=== PATIENT | female | born 1990 | race Two or more races ===

== ENCOUNTER → 2021-01-23 11:49 | Outpatient (CLI) | payer OTHER, SELFPAY | PROVIDERS: Visit Provider Obstetrics & Gynecology | DX: Z32.01 Encounter for pregnancy test, result positive (principal) | CPT/HCPCS: 36415; 84702 ==

== ENCOUNTER → 2021-01-25 11:33 | Outpatient (CLI) | payer OTHER, SELFPAY | PROVIDERS: Visit Provider Obstetrics & Gynecology | DX: Z34.90 Encounter for supervision of normal pregnancy, unspecified, unspecified trimester (principal) | CPT/HCPCS: 36415; 84702 ==

== ENCOUNTER → 2021-01-30 13:27 | Outpatient (CLI) | payer OTHER, SELFPAY ==
--- NOTE | 2021-01-30 13:27 | US_ITS ---
PROCEDURE: US OB <= 14 WEEKS FETUS CLINICAL INDICATION: Dates COMPARISON: No exams were available for comparison FINDINGS: An intrauterine gestational sac is present with a pole with a crown-rump length of 2.16cm correlating to gestational age of 8weeks 6days. heart tones are present with an FHR of 167bpm. Yolk sac is noted. There are least 2 nabothian cyst measuring 1 point and 1 cm each. Unremarkable adnexa. IMPRESSION: Live IUP at 8 weeks 6 days. Estimated due date by Ultrasound is 09/05/2021 Dictated by: Nuno Kowalski MD 01/30/2021 17:18 Nuno Kowalski MD in OV 01/30/2021 17:18
== END ==
PROVIDERS: PCP Obstetrics & Gynecology; Visit Provider Obstetrics & Gynecology
DX: Z34.90 Encounter for supervision of normal pregnancy, unspecified, unspecified trimester (principal)
CPT/HCPCS: 76801

== ENCOUNTER → 2021-04-22 14:45 | Outpatient (CLI) | payer OTHER, SELFPAY ==
[2021-04-22 16:05] LABS: Basophils # 0.1 K/mm3 (0-0.2); Basophils % 0.6 % (0.1-2.0); Eosinophils # 0.1 K/mm3 (0.0-0.4); Eosinophils % 0.5 % (0.1-12.0); Hematocrit 33.9 % (37.0-47.0); Hemoglobin 11.4 g/dL (12.2-16.2); Lymphocytes # 2.4 K/mm3 (0.7-4.5); Lymphocytes % 24.6 % (10-50); Mean Corpuscular HGB Conc 33.5 g/dL (31.8-35.4); Mean Corpuscular Hemoglobin 30.4 pg (27.0-31.2); Mean Corpuscular Volume 90.5 fl (81-99); Mean Platelet Volume 11.5 fl (7.4-10.4); Monocytes # 0.4 K/mm3 (0.1-1.0); Monocytes % 3.9 % (1.7-9.3); Neutrophils % 70.5 % (37.0-80.0); Platelet Count 140 K/mm3 (142-424); Red Blood Count 3.74 M/mm3 (4.20-5.40); White Blood Count 9.9 K/mm3 (4.8-10.8)
[2021-04-24 09:13] LABS: HIV Screen 4th Generation wRfx Non Reactive (Non Reactive)
[2021-04-24 10:14] LABS: Rapid Plasma Reagin Ab Titer Non Reactive (NonRea<1:1)
[2021-04-24 12:12] LABS: Hepatitis B Surface Antigen Negative (Negative); Hepatitis C Antibody <0.1 s/co ratio (0.0-0.9)
== END ==
PROVIDERS: Visit Provider Obstetrics & Gynecology
DX: Z34.90 Encounter for supervision of normal pregnancy, unspecified, unspecified trimester (principal)
CPT/HCPCS: 85025; 86592; 86703; 86762; 86850; 87340; 87380; G0432

== ENCOUNTER → 2021-04-25 13:57 | Outpatient (CLI) | payer OTHER, SELFPAY ==
--- NOTE | 2021-04-25 13:58 | US_ITS ---
FINAL REPORT CLINICAL HISTORY: OB Complete, Anatomy FINDINGS: There is a single live intrauterine gestation. Presentation is breech. The cervix is closed and measures 3.9 cm. Placenta is anterior and grade 1. movement is noted. Cardiac activity is confirmed at 150 beats per minute. Three-vessel cord with satisfactory umbilical cord insertion. Four-chamber heart is noted. brain and ventricles are unremarkable. Chest and diaphragm are unremarkable. ABDOMEN: Both kidneys are unremarkable. Stomach is unremarkable. SPINE: No anomalies identified. Both arms and legs noted. AMNIOTIC FLUID: Appropriate amount. MEASUREMENTS: ULTRASOUND AGE: 21 weeks 0 days. GESTATION AGE: 21 weeks 0 days. ESTIMATED WEIGHT: 386 g GROWTH PERCENTILE: 40 % BPD: 5 cm consistent with 21 weeks 2 days. OFD: 6.1 cm consistent with 20 weeks 5 days. HC: 17.6 cm consistent with 20 weeks 1 days. AC: 16 cm consistent with 21 weeks 1 days. FL: 3.5 cm consistent with 21 weeks 0 days. CEREBELLUM: 2.0 cm consistent with 20 weeks 1 days. HUMERUS: 3.5 cm consistent with 21 weeks 6 days. HC/AC: 1.10 CI: 82% FL/BPD: 69% FL/AC: 22% IMPRESSION: Single living IUP with an ultrasound age of 21 weeks 0 day. Reviewed, Interpreted and Dictated by Florencio Bourne III, MD Transcribed by Norberto Bhakta Authenticated by Florencio Bourne III, MD on 04/25/2021 04:18:[address] [facility]
== END ==
PROVIDERS: PCP Obstetrics & Gynecology; Visit Provider Obstetrics & Gynecology
DX: Z34.90 Encounter for supervision of normal pregnancy, unspecified, unspecified trimester (principal)
CPT/HCPCS: 76805

== ENCOUNTER 2021-05-14 10:13 | Outpatient (CLI) | payer OTHER, SELFPAY ==
[2021-05-14 10:27] VITALS: BMI 48.4
[2021-05-14 10:35] VITALS: BP 130/69; PULSE 64; RESP 17; TEMP 36.7; O2SAT 99; BMI 46.3
[2021-05-14 10:37] LABS: Microscopic, Urine URINE MICROSCOPIC (MICROSCOPIC)
[2021-05-14 10:46] LABS: Appearance,Urine CLEAR (Clear); Bilirubin,Urine Negative (Negative); Blood, Urine Negative (Negative); Color,Urine YELLOW (Yellow); Glucose,Urine (UA) Negative (Negative); Ketones,Urine Negative (Negative); Leukocyte Esterase,Urine TRACE (Negative); Nitrate,Urine Negative (Negative); Protein,Urine Negative (Negative); Specific Gravity, Urine 1.015 (1.005-1.030); Urobilinogen,Urine 0.2 EU/dl (0.2)
[2021-05-14 10:57] LABS: Barbiturates Screen,Urine Negative ng/ml (<200); WBC,Urine Occasional #/hpf (0-3)
[2021-05-14 10:58] LABS: Amphetamine/Metha Screen,Urine Negative ng/ml (<1000); Benzodiazepines Screen,Urine Negative ng/ml (<200); RBC,Urine Occasional #/hpf (0-3)
[2021-05-14 11:00] LABS: Cannabinoid Screen,Urine Positive ng/ml (<50); Methadone Screen,Urine Negative ng/ml (<300)
[2021-05-14 11:01] LABS: Cocaine Screen,Urine Negative ng/ml (<300)
[2021-05-14 11:02] LABS: Opiate Screen,Urine Negative ng/ml (<300); Phencyclidine Screen,Urine Negative ng/ml (<25)
--- NOTE | 2021-05-14 11:06 | US_ITS ---
FINAL REPORT CLINICAL HISTORY: HX OF GALLSTONES-- 25 wks preg-- vomiting FINDINGS: RIGHT UPPER QUADRANT ULTRASOUND: Ultrasound images of right upper quadrant were obtained. Limited images of the pancreas are obscured by bowel gas. The liver parenchyma is normal echogenicity. There are multiple gallstones in a distended gallbladder. The gallbladder wall is not significantly thickened. The common duct is normal. Limited images of right kidney measures 12 cm. IMPRESSION: Cholelithiasis. Reviewed, Interpreted and Dictated by Mike Madrigal MD Transcribed by Kim Miller Authenticated by Mike Madrigal MD on 05/14/2021 01:53:24 PM [facility]
[2021-05-14 12:06] LABS: Chloride 106 mmol/L (98-107); Potassium 4.5 mmoL/L (3.5-5.1); Sodium 133 mmol/L (136-145)
[2021-05-14 12:07] LABS: Basophils # 0.1 K/mm3 (0-0.2); Basophils % 0.6 % (0.1-2.0); Eosinophils # 0.2 K/mm3 (0.0-0.4); Eosinophils % 1.1 % (0.1-12.0); Hematocrit 35.1 % (37.0-47.0); Hemoglobin 11.6 g/dL (12.2-16.2); Lymphocytes # 2.2 K/mm3 (0.7-4.5); Mean Corpuscular HGB Conc 32.9 g/dL (31.8-35.4); Mean Corpuscular Hemoglobin 30.4 pg (27.0-31.2); Mean Corpuscular Volume 92.4 fl (81-99); Monocytes # 0.4 K/mm3 (0.1-1.0); Monocytes % 3.1 % (1.7-9.3); Neutrophils # 10.9 K/mm3 (1.8-7.8); Neutrophils % 79.1 % (37.0-80.0); Platelet Count 271 K/mm3 (142-424); Red Cell Distribution Width 13.8 % (11.5-17.5); White Blood Count 13.7 K/mm3 (4.8-10.8)
[2021-05-14 12:09] LABS: Alanine Aminotransferase 23 U/L (12-78); Albumin Level 3.7 g/dl (3.5-5.0); Albumin/Globulin Ratio 1.2 (1.1-1.8); Alkaline Phosphatase 116 U/L (38-126); Anion Gap 12.5 mEq/L (5-15); Aspartate Amino Transferase 24 U/L (14-36); Bilirubin,Total 0.5 mg/dl (0.2-1.3); Blood Urea Nitrogen 6 mg/dl (7-17); Carbon Dioxide 19 mmol/L (22.0-30.0); Creatinine Clearance Estimated 161 mL/min (50-200); Estimated Glomerular Filt Rate 186 ml/min (>60); GFR (African American) 225 ML/MIN (>60); Globulin 3.1 g/dL (1.3-3.2); Total Protein,Serum 6.8 g/dl (6.3-8.2)
[2021-05-14 12:10] LABS: Calcium 8.6 mg/dl (8.4-10.2); Glucose 106 mg/dl (74-100)
== END 2021-05-14 12:50 | disposition home or self-care (01) ==
LOC: OBOUT 10:14 → OB 10:16
PROVIDERS: Visit Provider Obstetrics & Gynecology
DX: O26.892 Other specified pregnancy related conditions, second trimester (principal); Z3A.24 24 weeks gestation of pregnancy; R10.9 Unspecified abdominal pain
CPT/HCPCS: 76705; 80053; 80305; 81001; 85025; 96365; G0463; J2405

== ENCOUNTER → 2021-07-18 10:22 | Outpatient (CLI) | payer OTHER, SELFPAY ==
[2021-07-18 10:52] LABS: Basophils # 0.2 K/mm3 (0-0.2); Basophils % 1.1 % (0.1-2.0); Eosinophils # 0.2 K/mm3 (0.0-0.4); Eosinophils % 1.2 % (0.1-12.0); Hematocrit 32.6 % (37.0-47.0); Hemoglobin 11.1 g/dL (12.2-16.2); Lymphocytes # 3.1 K/mm3 (0.7-4.5); Lymphocytes % 21.7 % (10-50); Mean Corpuscular Volume 91.3 fl (81-99); Mean Platelet Volume 11.1 fl (7.4-10.4); Monocytes # 0.7 K/mm3 (0.1-1.0); Monocytes % 4.7 % (1.7-9.3); Neutrophils # 10.3 K/mm3 (1.8-7.8); Neutrophils % 71.3 % (37.0-80.0); Platelet Count 263 K/mm3 (142-424); Red Blood Count 3.58 M/mm3 (4.20-5.40); Red Cell Distribution Width 13.6 % (11.5-17.5); White Blood Count 14.5 K/mm3 (4.8-10.8)
[2021-07-18 11:04] LABS: Glucose,Fasting 112 mg/dl (74-100)
[2021-07-18 12:43] LABS: Glucose 1 Hour 120 mg/dL (74-100)
== END ==
PROVIDERS: Visit Provider Obstetrics & Gynecology
DX: Z34.90 Encounter for supervision of normal pregnancy, unspecified, unspecified trimester (principal)
CPT/HCPCS: 36415; 82951; 85025

== ENCOUNTER → 2021-08-01 13:23 | Outpatient (CLI) | payer OTHER, SELFPAY ==
--- NOTE | 2021-08-01 13:24 | US_ITS ---
FINAL REPORT CLINICAL HISTORY: growth and CHRISTINA FINDINGS: There is a single live intrauterine gestation. Presentation is cephalic. Placenta is anterior. Cardiac activity is confirmed at 150 bpm. The fetus is active. Three-vessel cord with satisfactory umbilical cord insertion. Four-chamber heart is noted. AMNIOTIC FLUID: 15.35 cm MEASUREMENTS: ULTRASOUND AGE: 36 weeks 1 days. GESTATION AGE: 35 weeks 0 days. ESTIMATED WEIGHT: 2766 g GROWTH PERCENTILE: 70% BPD: 8.8 cm consistent with 35 weeks 4 days. OFD: 11.8 cm. HC: 32.6 cm consistent with 37 weeks 0 days. AC: 31.4 cm consistent with 35 weeks 3 days. FL: 7.1 cm consistent with 36 weeks 2 days. HC/AC: 1.04 CI: 75% FL/BPD: 80% FL/AC: 22% IMPRESSION: Single living IUP with an ultrasound age of 36 weeks 1 day. Reviewed, Interpreted and Dictated by Florencio Bourne III, MD Transcribed by Norberto Bhakta Authenticated and [facility]
== END ==
PROVIDERS: PCP Obstetrics & Gynecology; Visit Provider Obstetrics & Gynecology
DX: Z34.90 Encounter for supervision of normal pregnancy, unspecified, unspecified trimester (principal)
CPT/HCPCS: 76816

== ENCOUNTER → 2021-08-01 16:50 | Outpatient (CLI) | payer OTHER, SELFPAY | PROVIDERS: Visit Provider Obstetrics & Gynecology | DX: Z34.90 Encounter for supervision of normal pregnancy, unspecified, unspecified trimester (principal) | CPT/HCPCS: 86403 ==

== ENCOUNTER → 2021-08-27 15:16 | Outpatient (CLI) | payer OTHER, SELFPAY ==
[2021-08-27 16:28] LABS: Chloride 107 mmol/L (98-107); Sodium 131 mmol/L (136-145)
[2021-08-27 16:29] LABS: Potassium 4.2 mmoL/L (3.5-5.1)
[2021-08-27 16:31] LABS: Alanine Aminotransferase 15 U/L (12-78); Albumin Level 3.4 g/dl (3.5-5.0); Albumin/Globulin Ratio 1.2 (1.1-1.8); Alkaline Phosphatase 168 U/L (38-126); Aspartate Amino Transferase 23 U/L (14-36); Bilirubin,Total 0.4 mg/dl (0.2-1.3); Blood Urea Nitrogen 6 mg/dl (7-17); Estimated Glomerular Filt Rate 186 ml/min (>60); GFR (African American) 225 ML/MIN (>60); Globulin 2.9 g/dL (1.3-3.2); Total Protein,Serum 6.3 g/dl (6.3-8.2)
[2021-08-27 16:32] LABS: Calcium 9.3 mg/dl (8.4-10.2); Glucose 99 mg/dl (74-100)
[2021-08-27 17:00] LABS: Basophils # 0.1 K/mm3 (0-0.2); Basophils % 0.4 % (0.1-2.0); Eosinophils % 0.3 % (0.1-12.0); Hematocrit 34.2 % (37.0-47.0); Hemoglobin 10.8 g/dL (12.2-16.2); Lymphocytes # 2.6 K/mm3 (0.7-4.5); Lymphocytes % 21.7 % (10-50); Mean Corpuscular HGB Conc 31.7 g/dL (31.8-35.4); Mean Corpuscular Hemoglobin 29.1 pg (27.0-31.2); Mean Platelet Volume 12.6 fl (7.4-10.4); Monocytes # 0.7 K/mm3 (0.1-1.0); Monocytes % 5.9 % (1.7-9.3); Neutrophils # 8.7 K/mm3 (1.8-7.8); Neutrophils % 71.7 % (37.0-80.0); Platelet Count 263 K/mm3 (142-424); Red Blood Count 3.72 M/mm3 (4.20-5.40); Red Cell Distribution Width 13.9 % (11.5-17.5); White Blood Count 12.2 K/mm3 (4.8-10.8)
[2021-08-27 20:52] LABS: Anion Gap 8.2 mEq/L (5-15); Carbon Dioxide 20 mmol/L (22.0-30.0)
== END ==
PROVIDERS: Visit Provider Obstetrics & Gynecology
DX: Z98.891 History of uterine scar from previous surgery (principal)
CPT/HCPCS: 36415; 80053; 85025; C9803; U0003; U0005

== ENCOUNTER 2021-08-29 05:03 | Inpatient (IN) | payer OTHER, SELFPAY ==
[2021-08-29] VITALS (7 sets, daily range): BP systolic 100–130; BP diastolic 59–74; PULSE 63–95; RESP 16–18; TEMP 36.2–36.8; O2SAT 94–100; BMI 41.8
[2021-08-29 06:14] LABS: Coronavirus 19, PCR Not Detected (NotDetected); Influenza A, PCR Not Detected (NotDetected); Influenza B, PCR Not Detected (NotDetected); Microscopic, Urine URINE MICROSCOPIC (MICROSCOPIC)
[2021-08-29 06:18] LABS: Basophils % 0.2 % (0.1-2.0); Eosinophils # 0.1 K/mm3 (0.0-0.4); Hematocrit 30.8 % (37.0-47.0); Hemoglobin 10.9 g/dL (12.2-16.2); Lymphocytes # 2.9 K/mm3 (0.7-4.5); Lymphocytes % 21.3 % (10-50); Mean Corpuscular HGB Conc 35.4 g/dL (31.8-35.4); Mean Corpuscular Hemoglobin 30.8 pg (27.0-31.2); Mean Corpuscular Volume 86.8 fl (81-99); Mean Platelet Volume 11.3 fl (7.4-10.4); Monocytes # 0.6 K/mm3 (0.1-1.0); Monocytes % 4.2 % (1.7-9.3); Neutrophils # 10.1 K/mm3 (1.8-7.8); Neutrophils % 73.3 % (37.0-80.0); Platelet Count 263 K/mm3 (142-424); Red Blood Count 3.55 M/mm3 (4.20-5.40); Red Cell Distribution Width 13.3 % (11.5-17.5); White Blood Count 13.8 K/mm3 (4.8-10.8)
[2021-08-29 06:26] LABS: Appearance,Urine SL CLOUDY (Clear); Bilirubin,Urine Negative (Negative); Blood, Urine Negative (Negative); Color,Urine DK YELLOW (Yellow); Glucose,Urine (UA) Negative (Negative); Ketones,Urine Negative (Negative); Leukocyte Esterase,Urine 1+ (Negative); Nitrate,Urine Negative (Negative); Protein,Urine Negative (Negative); Urobilinogen,Urine 0.2 EU/dl (0.2)
[2021-08-29 06:35] LABS: Anion Gap 11.2 mEq/L (5-15); Blood Urea Nitrogen 7 mg/dl (7-17); Calcium 9.2 mg/dl (8.4-10.2); Carbon Dioxide 20 mmol/L (22.0-30.0); Chloride 106 mmol/L (98-107); Creatinine Clearance Estimated 198 mL/min (50-200); Estimated Glomerular Filt Rate 186 ml/min (>60); GFR (African American) 225 ML/MIN (>60); Glucose 102 mg/dl (74-100); Potassium 4.2 mmoL/L (3.5-5.1); Sodium 133 mmol/L (136-145)
[2021-08-29 06:48] LABS: Bacteria,Urine 2+ /lpf; Squamous Epithelial Cell,Urine 20-50 #/hpf (0-5)
[2021-08-29 06:56] LABS: Amphetamine/Metha Screen,Urine Negative ng/ml (<1000)
[2021-08-29 06:57] LABS: Barbiturates Screen,Urine Negative ng/ml (<200)
[2021-08-29 06:58] LABS: Benzodiazepines Screen,Urine Negative ng/ml (<200)
[2021-08-29 06:59] LABS: Cannabinoid Screen,Urine Positive ng/ml (<50); Cocaine Screen,Urine Negative ng/ml (<300)
[2021-08-29 07:00] LABS: Methadone Screen,Urine Negative ng/ml (<300)
[2021-08-29 07:01] LABS: Opiate Screen,Urine Negative ng/ml (<300)
[2021-08-29 07:02] LABS: Phencyclidine Screen,Urine Negative ng/ml (<25)
--- NOTE | 2021-08-29 07:08 | HMH.ANESCL ---
[facility] Anesthesia Checklist - Patient Identification Patient Identification: Arm Band - Structural Data Admitted From: Home Planned Operative Procedure/s: Repeat C/S Consent for Planned Operative Procedure(s) Verified: Yes - NPO Status Verified Time NPO: 00:00 - Airway Assessment C-Spine Mobility Assessed: Yes TMJ Mobility Assessed: Yes Dentition: Good Dentition - Neurological Assessment Level of Consciousness: Awake Hx Seizures: No Numbness or tingling in extremities: No - Anesthesia Plan Anesthesia Risk discussed: Yes Anesthesia Plan: Verified ASA Class: II Anesthesia Type: Spinal [facility] History I have reviewed the patient's past medical history: Yes *Have you ever received a pneumonia vaccine?: No *Have you received a flu vaccine this season?: No Anesthesia experience/problems:: None Laterality Cases: Bilateral: Tonsillectomy Other Surgeries: Yes: Amputation: No Fractures: No - *Social History Smoking Status: Former smoker Alcohol Intake: never Substance Use Type: marijuana *Occupational Status:: employed *Travel in the last 8 weeks: None Family Hx:: Cancer, Diabetes, Hypertension, Hyperlipidemia, Substance abuse, Anemia, Asthma Para: 2
--- NOTE | 2021-08-29 07:44 | HMH.HP ---
*Admission Date: 08/29/21 *Chief complaint: scheduled c section *History of present illness: 30 yo @ 39 weeks Previous c section; declines AZALIA care at [facility]--Dr. Rey Irregular contractions; denies LOF or vaginal bleeding Normal movement [facility] History I have reviewed the patient's past medical history: Yes Medical History: Denies:: Seizures *Have you ever received a pneumonia vaccine?: No *Have you received a flu vaccine this season?: No Anesthesia experience/problems:: None Laterality Cases: Bilateral: Tonsillectomy Other Surgeries: Yes: Amputation: No Fractures: No - *Social History Smoking Status: Former smoker Alcohol Intake: never Substance Use Type: marijuana *Occupational Status:: employed *Travel in the last 8 weeks: None Family Hx:: Cancer, Diabetes, Hypertension, Hyperlipidemia, Substance abuse, Anemia, Asthma Para: 2 Review of Systems - Review of Systems Review of systems:: pertinent systems reviewed and negative unless documented below - *Genitourinary Reports other (irregular contractions) Meds Home Medications Medication Instructions Recorded Confirmed Type Vit Calc,Iron,Folic [Kpn] 1 tab PO DAILY 08/29/21 08/29/21 History Allergies Allergy/AdvReac Type Severity Reaction Status Date / Time No Known Allergies Allergy Verified 08/22/21 14:50 Exam Vital signs and Labs for Last 24 Hours: Temp Pulse Resp BP Pulse Ox 97.3 F L 63 18 111/74 100 08/29/21 12:29 08/29/21 12:29 08/29/21 09:40 08/29/21 12:29 08/29/21 09:40 Laboratory Results - last 24 hr 08/30/21 07:00: Hgb 9.7 L, Hct 29.0 L I & O for Last 24 hours: Intake & Output 08/28/21 08/29/21 08/30/21 08/31/21 11:59 11:59 11:59 11:59 Intake Total 2500 / 2500 0 / 0 Balance 2500 / 2500 0 / 0 Weight 267 lb Microbiology Reports for the Last 24 Hours: Microbiology 08/29/21 06:00 Urine,Clean Catch Urine Culture - Preliminary NO GROWTH AFTER 24 HOURS - Constitutional no acute distress - *Routine HEENT Exam Head: Present: normocephalic Eye: Absent: conjunctival icterus, scleral injection ENT: Present: mucous membranes moist - *Routine Neck Exam Present: supple. Absent: lymphadenopathy - *Routine Respiratory Exam Present: CTA bilaterally - *Routine Cardiovascular Exam Present: RRR - *Routine Abdominal Exam Present: soft, normoactive bowel sounds. Absent: tenderness - *Routine Rectal Exam Rectal:: deferred - *Routine Genitalia Exam Genitalia:: normal female - *Routine Extremities Exam Absent: cyanosis, clubbing, edema - *Routine Skin Exam Present: warm. Absent: rash - *Routine Neurological Exam Present: alert, oriented X3 Assessment and Plan (1) 39 weeks gestation of Status: Acute Category: Medical Code(s): Z3A.39 - 39 weeks gestation of (2) Anemia affecting Status: Acute Category: Medical Code(s): O99.019 - Anemia complicating , unspecified trimester (3) Morbid obesity with body mass index (BMI) of 45.0 to 49.9 in adult Status: Acute Category: Medical Code(s): E66.01 - Morbid (severe) obesity due to excess calories; Z68.42 - Body mass index [BMI] 45.0-49.9, adult (4) Positive urine drug screen Problem details: THC Status: Acute Category: Medical Code(s): R82.5 - Elevated urine levels of drugs, medicaments and biological substances (5) Previous section Status: Acute Category: Surgical Code(s): Z98.891 - History of uterine scar from previous surgery - Assessment and plan all Dx Assessment and Plan for all problems:: Elective repeat CS
--- NOTE | 2021-08-29 09:21 | P.PN_ITS ---
[facility] Anesthesia Record Part I Intake, IV Amount: 2,500 Estimated blood loss (mL): 600 Urine output (mL): 200 Blood Pressure: 100/59 SaO2: 100 Pulse Rate: 63 Respiratory Rate: 16 Temperature: 97.5 F Patient is:: Awake, Stable Stable to PACU at:: 09:10
--- NOTE | 2021-08-29 10:12 | SUR.OPER ---
late entry.... 0817-viable male born at this time
[2021-08-29 10:54] LABS: Microscopic,Cath URINE MICROSCOPIC (MICROSCOPIC)
[2021-08-29 11:00] LABS: Appearance,Urine/Cath CLEAR (Clear); Bilirubin,Cath Negative (Negative); Blood, Urine/Cath Negative (Negative); Color,Urine/Cath YELLOW (Yellow); Glucose,Urine/Cath (UA) Negative (Negative); Ketones,Urine/Cath Negative (Negative); Leukocyte Esterase,Cath Negative (Negative); Nitrate,Cath Negative (Negative); PH,Urine/Cath 6.5 (5.0-8.5); Protein,Urine/Cath Negative (Negative); Urobilinogen,Cath 0.2 EU/dl (0.2)
[2021-08-29 11:15] LABS: RBC,Urine/Cath Occasional # /hpf (0-3)
[2021-08-29 11:16] LABS: Mucus,Urine/Cath Trace /lpf
--- NOTE | 2021-08-29 12:28 | P.PN_ITS ---
[facility] Anesthesia Record Part II Discharge Time: 09:40 Destination: Obstetric PACU nurse assessment reviewed?: Yes Patient Condition:: Good Anesthesia Complications:: None Swallowing reflex intact?: Yes Cyanosis?: No Blood Pressure: 111/74 Pulse Rate: 63 Temperature: 97.3 F Mental Status: Alert & Oriented Pain level:: 0 Nausea and/or vomitting:: None Intake, IV Amount: 0
--- NOTE | 2021-08-29 13:15 | HMH.OPNOTE ---
Date of procedure: 08/29/21 Pre-op Diagnosis:: 1. 39 weeks 2. Previous CS 3. BMI 42 Post-op Diagnosis:: Same Procedure performed:: Low Transverse C Section Surgeon:: Brisa Rey MD Aerospace Physiological Technician(s):: Mell Fletcher DO SKI PATROL OFFICER:: Other Anesthesia: spinal Estimated blood loss (mL): 600 Operative findings:: Vigorous male infant in vertex presentation Grossly normal appearing uterus, fallopian tubes and ovaries Operative note:: The patient was taken to the OR and spinal was administered without difficulty. She was prepped and draped in normal sterile fashion. A pfannenstiel skin incision was made with the scalpel and carried down to the fascia. The fascia was incised in the midline and sharply dissected off the rectus muscles. The muscles were in the midline and the peritoneum was entered sharply and extended bluntly. The Frandy-O self retaining retractor was placed in the abdomen and a bladder flap was created. The uterus was incised in the lower uterine segment in a transverse fashion and extended bluntly. Amniotomy was performed and clear fluid noted. The infant was delivered in controlled fashion, without complication or shoulder dystocia; a single nuchal cord was easily manually reduced during the delivery. The was vigorous at and handed to awaiting purchasing agent and nursing staff for evaluation after the umbilical cord was clamped and cut. Cord blood was collected and a cord segment was preserved. The placenta was manually extracted and noted to be intact. The uterus was repaired with 0-vicryl in a running/locked fashion. A second layer was placed for hemostasis. Surgicfoam was placed over the area of bladder dissection, which was oozing slightly. The peritoneum was closed with 2-0 vicryl in a running fashion. The fascia was closed with #1 vicryl in a running fashion. The subcutaneous fat was closed with 2-0 vicryl in an interrupted fashion. The skin was closed with 2-0 stratafix in a subcuticular fashion. The patient tolerated the procedure well. Sponge, lap, needle and instrument counts were correct x 2. She was taken to PACU awake and in stable condition. Condition: stable Disposition: PACU Specimens:: Placenta Complications:: None
--- NOTE | 2021-08-29 15:33 | P.CONPHA_ITS ---
[facility] Pharm[facility] VTE Monitoring - Patient Demographics Admission date: 08/29/21 Report Date: 08/29/21 Time: 15:33 Allergies/Adverse Reactions: Patient Allergies No Known Allergies Allergy (Verified 08/22/21 14:50) Height: 1.7 m Weight: 121.109 kg - VTE Risk Labs: VTE Related Lab Results Hgb 10.9 g/dL (12.2-16.2) L 08/29/21 06:00 Hct 30.8 % (37.0-47.0) L 08/29/21 06:00 Plt Count 263 K/mm3 (142-424) 08/29/21 06:00 BUN 7 mg/dl (7-17) 08/29/21 06:00 Creatinine 0.40 mg/dl (0.52-1.04) L 08/29/21 06:00 Estimated Creat Clear 198 mL/min (50-200) 08/29/21 06:00 - Prophylaxis VTE Prophylaxis Ordered?: Yes Types of VTE Prophylaxis: IPCS Thigh High Location of Applied Device: Bilateral Lower Extremeties
[2021-08-30 07:24] LABS: Hemoglobin 9.7 g/dL (12.2-16.2)
--- NOTE | 2021-08-30 11:51 | SW/DCPLANNER ---
Addendum entered by Zohreh Hatch 09/02/21 15:27: Infant cord screen is negative. Addendum entered by [facility] 08/30/21 15:16: This case did NOT meet criteria by Central Intake. Original Note: I received a referral for this patient regarding: limited care at beginning of , THC positive throughout and on admit. Patient tested positive for THC at first appointment on 02/02/2022. Patient's next appointment was on 05/14/2021 (due to father having cancer and being with him in [place]) and also tested positive for THC. Patient was tested again at admission 08/29/21 and was also positive for THC. Infant's urine drug screen is negative. Patient stated that she does not recall any THC use since January of 2021. male (Anthony Glover) was born on [birth year]. Patient stated that infant's father is not involved. Patient, infant and two other children (Vu Kinsey 10/21/07 and Gaston Kinsey 05/04/18) will reside at [address] [place] [address]. Patient's contact number is [phone]. Patient is currently established with [facility]. Patient has the following items at home: crib, carseat, clothing, diapers and will be bottle feeding. Patient is planned to discharge over the weekend. I did report this to Central Intake: ID# [id number]. I will follow up with infant cord screen.
--- NOTE | 2021-08-30 13:52 | HMH.ACPN2 ---
Internal Medicine - PN: Subj *Date: 08/30/21 *Time: 13:52 Interval history: PPD #1 repeat LTCS No unusual complaints Tolerating regular diet Ambulating and voiding without difficulty Pain control sufficient Lochia appropriate Exam Vital signs and Labs for Last 24 Hours: Temp Pulse Resp BP Pulse Ox 97.3 F L 63 18 111/74 100 08/29/21 12:29 08/29/21 12:29 08/29/21 09:40 08/29/21 12:29 08/29/21 09:40 Laboratory Results - last 24 hr 08/30/21 07:00: Hgb 9.7 L, Hct 29.0 L I & O for Last 24 hours: Intake & Output 08/28/21 08/29/21 08/30/21 08/31/21 11:59 11:59 11:59 11:59 Intake Total 2500 / 2500 0 / 0 Balance 2500 / 2500 0 / 0 Weight 267 lb Microbiology Reports for the Last 24 Hours: Microbiology 08/29/21 06:00 Urine,Clean Catch Urine Culture - Preliminary NO GROWTH AFTER 24 HOURS Narrative: CONSTITUTIONAL: no acute distress HEENT: mucous membranes moist PULMONARY: breathing unlabored without audible wheezes CV: no tachycardia or visible JVD; normal LE peripheral pulses ABD: soft, ND; appropriately tender but no rebound/guarding : fundus firm at/below umbilicus SKIN: incision well approximated with no drainage, erythema or induration EXT: 1+ edema LEs NEURO: alert/oriented, no altered mental status PSYCH: appropriate mood and demeanor without anxiety/depression Assessment and Plan (1) 39 weeks gestation of Status: Acute Category: Medical Code(s): Z3A.39 - 39 weeks gestation of (2) Anemia affecting Status: Acute Category: Medical Code(s): O99.019 - Anemia complicating , unspecified trimester (3) Morbid obesity with body mass index (BMI) of 45.0 to 49.9 in adult Status: Acute Category: Medical Code(s): E66.01 - Morbid (severe) obesity due to excess calories; Z68.42 - Body mass index [BMI] 45.0-49.9, adult (4) Positive urine drug screen Problem details: THC Status: Acute Category: Medical Code(s): R82.5 - Elevated urine levels of drugs, medicaments and biological substances (5) Previous section Status: Acute Category: Surgical Code(s): Z98.891 - History of uterine scar from previous surgery - Assessment and plan all Dx Assessment and Plan for all problems:: Routine postop/ care Anticipate discharge home tomorrow if peds in agreement
[2021-08-30 20:28] VITALS: RESP 18
[2021-08-31 01:02] VITALS: RESP 18
--- NOTE | 2021-08-31 13:02 | HMH.DCSUM ---
General - General Admission date:: 08/29/21 Discharge date: 08/31/21 HPI HPI: 30 yo @ 39 weeks Previous c section; declines AZALIA care at [facility]--Dr. Rey Irregular contractions; denies LOF or vaginal bleeding Normal movement Hospital Course Hospital Course: Hospital course uncomplicated She is discharged home on PPD #2 in stable condition She is tolerating a regular diet, ambulating and voiding without difficulty Lochia is small Pain control sufficient Care management consult completed Rhogam Administration: Not Indicated Objective Vital signs: Temp Pulse Resp BP Pulse Ox 97.3 F L 63 18 111/74 100 08/29/21 12:29 08/29/21 12:29 08/31/21 01:02 08/29/21 12:29 08/29/21 09:40 Narrative: CONSTITUTIONAL: no acute distress HEENT: mucous membranes moist PULMONARY: breathing unlabored without audible wheezes CV: no tachycardia or visible JVD; normal LE peripheral pulses ABD: soft, ND; appropriately tender but no rebound/guarding : fundus firm below umbilicus SKIN: incision well approximated with no drainage, erythema or induration EXT: 1+ edema LEs NEURO: alert/oriented, no altered mental status PSYCH: appropriate mood and demeanor without anxiety/depression DS: Diagnosis - Discharge Diagnosis (1) 39 weeks gestation of Status: Acute (2) Anemia affecting Status: Acute (3) Morbid obesity with body mass index (BMI) of 45.0 to 49.9 in adult Status: Acute (4) Positive urine drug screen Status: Acute Problem details: THC (5) Previous section Status: Acute Discharge Plan - Patient Discharge Instructions ACTIVITY: Continue current activity DIET: regular diet Additional Instructions: No tub baths for 6 weeks Drink plenty of fluids Keep surgical site clean & dry Patient Instructions: How to Care for a Surgical Wound, Depression, Hemorrhage, DI for , DI for Pre-eclampsia, Surgical Site Infection, Catheter-associated Urinary Tract Infection, [facility] Post Discharge Instructions, Preventing the Spread of Coronavirus Discharge Instructions - Follow up Plan Follow up with: Brisa Rey MD [Staff Physician] - 09/05/21 2:45 pm Disposition: Home, Self-Care Condition at discharge:: Stable Home Medications: Home Medications Medication Instructions Recorded Confirmed Type Vit Calc,Iron,Folic [Kpn] 1 tab PO DAILY 08/29/21 08/29/21 History Ibuprofen [Motrin 400mg 800 mg PO Q6HP PRN #40 tab 08/31/21 Rx tablet] Oxycodone HCl [OxyIR 5mg tablet] 5 mg PO Q6HP PRN #24 tab 08/31/21 Rx Prescriptions/Medication Reconciliation: New Acetaminophen [Acetaminophen 325mg tab] 650 mg PO Q4HP PRN tab PRN Reason: Mild Pain with NSAID Oxycodone HCl [OxyIR 5mg tablet] 5 mg PO Q6HP PRN #24 tab PRN Reason: ABDOMINAL PAIN Ibuprofen [Motrin 400mg tablet] 800 mg PO Q6HP PRN #40 tab PRN Reason: Mild To Moderate Pain Continued Vit Calc,Iron,Folic [Kpn] 1 tab PO DAILY - Problem Reconciliation Problems Reviewed?: Yes
== END 2021-08-31 15:15 | disposition home or self-care (01) | DRG 787 ==
PROVIDERS: Admitting Provider Obstetrics & Gynecology; Visit Provider Obstetrics & Gynecology
PROC: 10D00Z1 Extraction of Products of Conception, Low, Open Approach (ICD-10-PCS; CPT 59514; principal; 2021-08-29 07:30)
DX: O34.211 Maternal care for low transverse scar from previous cesarean delivery (principal); O99.323 Drug use complicating pregnancy, third trimester; N85.8 Other specified noninflammatory disorders of uterus; Z3A.39 39 weeks gestation of pregnancy; Z37.0 Single live birth; O99.019 Anemia complicating pregnancy, unspecified trimester; D64.9 Anemia, unspecified; F12.90 Cannabis use, unspecified, uncomplicated; O69.81X0 Labor and delivery complicated by cord around neck, without compression, not applicable or unspecified
CPT/HCPCS: 59514; 36415; 59025; 80048; 80053; 80305; 81001; 85014; 85018; 85025; 86850; 87086; 94761; C9290; C9803; G0283; J2405; U0003; U0005